=== PATIENT | female | born 1995 | race Caucasian/White ===

== ENCOUNTER 2018-04-10 17:53 | Emergency (ER) ==
[2018-04-10 18:00] VITALS: BP 109/73; TEMP 97.9; BMI 29.1
[2018-04-10] MEDS ORDERED: SODIUM CHLORIDE 1,000 ML IV STA (18:09)
[2018-04-10] MEDS ORDERED: TORADOL IVP STA (18:10)
[2018-04-10] MEDS ORDERED: MORPHINE 2 MG/ML SYRINGE IVP STA (18:10)
[2018-04-10] MEDS ORDERED: ZOFRAN 4 MG/2 ML IVP STA (18:11)
--- NOTE | 2018-04-10 18:14 | ED.PDOC ---
General ED Provider: Dr. KENIA BANEGAS-ER Chief Complaint: Back Pain Stated Complaint: im having very painful periods Time Seen by Physician: 18:12 Mode of Arrival: Walk-In Information Source: Patient, Family Exam Limitations: No limitations Primary Care Provider: KENIA BANEGAS Nursing and Triage Documentation Reviewed and Agree: Yes Does patient meet sepsis criteria?: No System Inflammatory Response Syndrome: Not Applicable Sepsis Protocol: For patient's 13 years and over: Temp is 96.8 and below OR 101 and greater Pulse >90 BPM Resp >20/minute Acutely Altered Mental Status Are patient's symptoms suggestive of a new infection, such as: -Pneumonia -Skin, Soft Tissue -Endocarditis -UTI -Bone, Joint Infection -Implantable Device -Acute Abdominal Infection -Wound Infection -Meningitis -Blood Stream Catheter Infection -Unknown GI Complaint Exam - Abdominal Pain Complaint/Exam Onset: Gradual Duration: several hours Symptoms Are: Still present Timing: Constant Initial Severity: Mild Current Severity: Moderate Location of Pain: Diffuse Character: Reports: Dull, Aching, Cramping Associated Signs and Symptoms: Reports: Nausea Differential Diagnoses: Other Review of Systems - Review Of Systems Constitutional: Reports: No symptoms Eyes: Reports: No symptoms Ears, Nose, Mouth, Throat: Reports: No symptoms Respiratory: Reports: No symptoms Cardiac: Reports: No symptoms GI: Reports: Abdominal pain : Reports: No symptoms Musculoskeletal: Reports: No symptoms Skin: Reports: No symptoms Neurological: Reports: No symptoms Endocrine: Reports: No symptoms Hematologic/Lymphatic: Reports: No symptoms All Other Systems: Reviewed and Negative Past Medical History - Past Medical History Previously Healthy: Yes Endocrine: Reports: None Cardiovascular: Reports: None Respiratory: Reports: None Hematological: Reports: None Gastrointestinal: Reports: None Genitourinary: Reports: None Neuro/Psych: Reports: None Musculoskeletal: Reports: None Cancer: Reports: None Last Menstrual Period: now Other Pertinent Past Medical History: HOSPITALIZATION FOR FLU - Surgical History General Surgical History: Reports: None - Family History Family History: Reports: Unknown - Social History Smoking Status: Current every day smoker, Light tobacco smoker Hx Substance Use: No Alcohol Screening: None Physical Exam - Physical Exam Appearance: Well-appearing Pain Distress: Moderate Eyes: ALEX ENT: Ears normal, Nose normal, Oropharynx normal Neck: Supple Respiratory: Airway patent, Breath sounds clear, Breath sounds equal, Respirations nonlabored Cardiovascular: RRR, Pulses normal, No rub, No murmur GI/: Soft, Nontender, No masses, Bowel sounds normal, No Organomegaly Musculoskeletal: Normal strength, ROM intact, No edema, No calf tenderness Skin: Warm, Dry, Normal color Neurological: Sensation intact, Motor intact, Reflexes intact, Cranial nerves intact, Alert, Oriented Psychiatric: Affect appropriate, Mood appropriate Physician Notification - Case Discussed Physician Notified: dr [email or web address] Time of Notification: 19:00 Critical Care Note - Critical Care Note Total Time (mins): 0 Course - Course Hematology/Chemistry: 04/10/18 16:17 Orders, Labs, Meds: Lab Review 04/10/18 16:17 WBC 14.83 H RBC 4.71 Hgb 13.5 Hct 40.3 MCV 85.6 MCH 28.7 MCHC 33.5 RDW Coeff of Michael 12.6 Plt Count 317 Immature Gran % (Auto) 0.3 Neut % (Auto) 72.2 Lymph % (Auto) 19.8 [place] % (Auto) 5.6 Eos % (Auto) 1.6 Baso % (Auto) 0.5 Immature Gran # (Auto) 0.1 Neut # (Auto) 10.7 H Lymph # (Auto) 2.9 [place] # (Auto) 0.8 Eos # (Auto) 0.2 Baso # (Auto) 0.1 Orders Category Date Time Status ED IV/MEDIPORT/POWERPORT .ONCE EMERGENCY 04/10/18 18:09 Active CBC W/ AUTO DIFF Stat LAB 04/10/18 16:17 Completed CMP [COMPREHENSIVE METABOLIC PANEL] Stat LAB 04/10/18 18:09 Received ESR Stat LAB 04/10/18 16:17 Received SERUM Stat LAB 04/10/18 16:17 Received UA [URINALYSIS C & S IF INDICATED] Stat LAB 04/10/18 18:10 Uncollected 0.9 % Sodium Chloride [Saline Flush] MEDS 04/10/18 18:09 Ordered 1 syr IVF PRN PRN Ketorolac Tromethamine [Toradol] MEDS 04/10/18 18:10 Discontinued 30 mg IVP ONCE STA Morphine Sulfate [Morphine 2 mg/ml Syringe] MEDS 04/10/18 18:10 Discontinued 2 mg IVP ONCE STA Ondansetron HCl/Pf [Zofran 4 mg/2 ml] MEDS 04/10/18 18:11 Discontinued 4 mg IVP ONCE STA Sodium Chloride 0.9% [Sodium Chloride] 1,000 ml MEDS 04/10/18 18:[address] ABDOMEN/PELVIS WO CONTRAST Stat RADS 04/10/18 18:14 Ordered Medications Generic Name Dose Route Start Last Admin Trade Name Freq PRN Reason Stop Dose Admin Sodium Chloride 1,000 mls @ 1,000 mls/hr 04/10/18 18:09 Sodium Chloride IV 04/10/18 19:08 BOLUS STA Sodium Chloride 1 syr 04/10/18 18:09 Saline Flush IVF PRN PRN To flush IV Discontinued Medications Generic Name Dose Route Start Last Admin Trade Name Freq PRN Reason Stop Dose Admin Ketorolac Tromethamine 30 mg 04/10/18 18:10 Toradol IVP 04/10/18 18:11 ONCE STA Morphine Sulfate 2 mg 04/10/18 18:10 Morphine 2 Mg/Ml Syringe IVP 04/10/18 18:11 ONCE STA Ondansetron HCl 4 mg 04/10/18 18:11 Zofran 4 Mg/2 Ml IVP 04/10/18 18:12 ONCE STA Vital Signs: Temp Pulse Resp BP Pulse Ox 04/10/18 17:53 97.9 F 58 L 20 109/73 99 Departure - Departure Time of Disposition: 18:44 Disposition: HOME SELF-CARE Discharge Problem: Dysmenorrhea Instructions: Dysmenorrhea (ED) Condition: Good Pt referred to PMD for follow-up: Yes IPMP verified?: No Additional Instructions: f/u with [facility]man Allergies/Adverse Reactions: Allergies Penicillins Adverse Reaction (Verified 04/10/18 18:01) can take cephalosporins Home Medications: Ambulatory Orders Norgestimate-Ethinyl Estradiol [Sprintec 28 Day Tablet] 1 each PO DAILY Disposition Discussed With: Patient, Family
--- NOTE | 2018-04-10 19:34 | CT ---
EXAM: CT abdomen pelvis without contrast HISTORY: Dysmenorrhea COMPARISON: 10/22/2015 TECHNIQUE: CT abdomen pelvis performed without intravenous contrast. Coronal and sagittal reformatt ed images obtained. FINDINGS: Lung bases clear. No free air. No acute abnormalities of the bones. Heart normal in siz e. Evaluation organ parenchyma limited without contrast. Liver appears normal. Gallbladder appears normal. Pancreas appears normal. Spleen appears normal. Adrenals appear normal. Kidneys appear n ormal. Aorta normal in caliber. Bladder appears normal. Uterus appears normal. Tampon noted. Sma ll fat-containing periumbilical hernia. Stomach appears normal. No dilated loops small bowel. Appe ndix appears normal. Colon unremarkable. No inflammatory stranding identified in the abdomen or pel vis. IMPRESSION: No acute abnormality identified in the abdomen or pelvis.
== END 2018-04-10 21:02 | disposition home or self-care (01) ==
LOC: ED 17:53
DX: N94.6 Dysmenorrhea, unspecified (principal); F17.210 Nicotine dependence, cigarettes, uncomplicated
CPT/HCPCS: 36415; 80053; 81001; 84703; 85025; 85651; 87086; 87186; 96374; 96375; 99283